=== PATIENT | female | born 1990 | race Caucasian/White ===

== ENCOUNTER 2018-07-29 17:18 | Emergency (ER) | payer MEDICAID ==
--- NOTE | 2018-07-29 17:38 | EDM.PDOC ---
ED HPI GENERAL MEDICAL PROBLEM - General Chief Complaint: Back Pain or Injury Stated Complaint: SHOOTING PAIN DOWN LEG Time Seen by Provider: 07/29/18 17:34 Source of Information: Reports: Patient History Limitations: Reports: No Limitations - History of Present Illness INITIAL COMMENTS - FREE TEXT/NARRATIVE: HISTORY AND PHYSICAL: History of present illness: Patient is a 28-year-old female who presents to the emergency room with complaints of right lumbar back pain with sciatica down the right leg. Discomfort has been ongoing for the past 2-1/2 weeks. She states 2 weeks ago she did receive a lumbar spine x-ray which was normal. She did see the chiropractor earlier this week and also saw her primary care provider yesterday. She states she was given diclofenac and Metaxalone. She has been taking these medications as directed, although has not found any relief. She does have the sensation of numbness and tingling down the right lower extremity. Denies any difficulty ambulating or weakness involving the extremities. She has not had any urinary or fecal incontinence. Denies any injury, trauma or falls associated with the back pain. She states that she has had chronic intermittent back pain for several years, all of which were involving the right. Patient does have an MRI scheduled next week. Review of systems: As per history of present illness and below otherwise all systems reviewed and negative. Past medical history: As per history of present illness and as reviewed below otherwise noncontributory. Surgical history: As per history of present illness and as reviewed below otherwise noncontributory. Social history: See social history for further information Family history: As per history of present illness and as reviewed below otherwise noncontributory. Physical exam: General: Well developed and well nourished 28-year-old female. Alert and oriented. Nontoxic appearing and in no acute distress. HEENT: Atraumatic, normocephalic, pupils equal and reactive bilaterally, negative for conjunctival pallor or scleral icterus, mucous membranes moist, trachea midline. No drooling or trismus noted. No meningeal signs. No hot potato voice noted. Lungs: Clear to auscultation, breath sounds equal bilaterally. Heart: S1S2, regular rate and rhythm without overt murmur Abdomen: Soft, nondistended, nontender. Negative for masses. Negative for costovertebral tenderness. Pelvis: Stable nontender. Genitourinary: Deferred. Rectal: Deferred. Skin: Intact, warm, dry. No lesions or rashes noted. Extremities: Atraumatic, moves all extremities per self without difficulty or deficits, negative for cords or calf pain. Neurovascular unremarkable. C-spine/Back: No pinpoint vertebral tenderness upon palpation. No crepitus, step -offs or obvious deformities. Patient is ambulatory into the emergency room without difficulty or deficits. She is able to lift her great toe up towards her nose, bilaterally, with good equal strength. Any urinary or fecal incontinence. +CMS to bilateral LE bilateral. Paraspinous muscular tenderness to the right low lumbar region going into her right gluteal. Neuro: Awake, alert, oriented. Cranial nerves II through XII unremarkable. Cerebellum unremarkable. Motor and sensory unremarkable throughout. Exam nonfocal. Notes: I did offer to do x-ray imaging with her today, she declines, stating she did have x-rays done 2 weeks ago. She does mention she is disappointed that she will not be receiving an MRI today. She does have an appointment set up for this next week. I encouraged her to keep this appointment. We'll give her Norflex and Solu-Medrol IM while here. Supportive care measures were reviewed and discussed. Voices understanding and is agreeable to plan of care. Denies any further questions or concerns at this time. Diagnostics: Declines Therapeutics: Solu-Medrol, Norflex Prescription: Medrol Dosepak Impression: Lumbar back pain with sciatica Plan: 1. The medication he received as an injection today does cause drowsiness so do not drive for the remaining day 2. When resting please lay on a flat firm surface. Limit your immobility to prevent muscle stiffness, get up to ambulate/move around/gentle stretching multiple times throughout the day. May alternate heat and ice to the painful areas 3. Tylenol as needed for back pain. Take the Climax as directed, this medication may cause drowsiness a do not take it will driving her needing to be functioning outside of the house. Do not take Metaxalone concurrent with Climax - space these medications out from each other. 4. Please follow-up with your primary care provider as we discussed. Return to the ED as needed and as discussed. Definitive disposition and diagnosis as appropriate pending reevaluation and review of above. Right Lower Back Pain Score (Numeric/FACES): 9 - Related Data Allergies Allergy/AdvReac Type Severity Reaction Status Date / Time No Known Allergies Allergy Verified 07/29/18 17:33 Home Meds: Home Meds Diclofenac Sodium [Diclofenac Sodium ER] 50 mg PO TID 07/29/18 [History] Metaxalone 800 mg PO TID 07/29/18 [History] ED ROS GENERAL - Review of Systems Review Of Systems: ROS reveals no pertinent complaints other than HPI. ED EXAM,LOWER BACK PAIN/INJURY - Physical Exam Exam: See Below (See dictation) Course - Vital Signs Last Recorded V/S: Last Vital Signs Temp 98.8 F 07/29/18 17:27 Pulse 92 07/29/18 17:27 Resp 18 07/29/18 17:27 BP 128/79 07/29/18 17:27 Pulse Ox 97 07/29/18 17:27 - Orders/Labs/Meds Orders: Medication Orders Methylprednisolone Sodium Succinate (Solu-Medrol) 125 mg IM ONETIME ONE Stop: 07/29/18 17:41 Orphenadrine Citrate (Norflex) 60 mg IM NOW STA Stop: 07/29/18 17:41 Meds: Medications Generic Name Dose Route Start Last Admin Trade Name Imerq PRN Reason Stop Dose Admin Methylprednisolone Sodium Succinate 125 mg 07/29/18 17:40 Solu-Medrol IM 07/29/18 17:41 ONETIME ONE Orphenadrine Citrate 60 mg 07/29/18 17:40 Norflex IM 07/29/18 17:41 NOW STA Departure - Departure Time of Disposition: 17:53 Disposition: Home, Self-Care 01 Clinical Impression: Back pain of lumbar region with sciatica - Discharge Information Instructions: Sciatica Referrals: PCP,None [Primary Care Provider] - Forms: ED Department Discharge Additional Instructions: The following information is given to patients seen in the emergency department who are being discharged to home. This information is to outline your options for follow-up care. We provide all patients seen in our emergency department with a follow-up referral. The need for follow-up, as well as the timing and circumstances, are variable depending upon the specifics of your emergency department visit. If you don't have a primary care physician on staff, we will provide you with a referral. We always advise you to contact your personal physician following an emergency department visit to inform them of the circumstance of the visit and for follow-up with them and/or the need for any referrals to a consulting specialist. The emergency department will also refer you to a specialist when appropriate. This referral assures that you have the opportunity for follow-up care with a specialist. All of these measure are taken in an effort to provide you with optimal care, which includes your follow-up. Under all circumstances we always encourage you to contact your private physician who remains a resource for coordinating your care. When calling for follow-up care, please make the office aware that this follow-up is from your recent emergency room visit. If for any reason you are refused follow-up, please contact the [facility] Emergency Department at and asked to speak to the emergency department charge nurse. [facility] [address] [place] [id number] [place] [address] 1. The medication he received as an injection today does cause drowsiness so do not drive for the remaining day 2. When resting please lay on a flat firm surface. Limit your immobility to prevent muscle stiffness, get up to ambulate/move around/gentle stretching multiple times throughout the day. May alternate heat and ice to the painful areas 3. Tylenol as needed for back pain. Take the Climax as directed, this medication may cause drowsiness a do not take it will driving her needing to be functioning outside of the house. Do not take Metaxalone concurrent with Climax - space these medications out from each other. 4. Please follow-up with your primary care provider as we discussed. Return to the ED as needed and as discussed.
[2018-07-29] MEDS ORDERED: methylPREDNISolone Sodium Succinate 125 MG/2 ML SDV IM ONE (17:40)
== END 2018-07-29 18:30 | disposition home or self-care (01) ==
LOC: MW.ED 17:18
DX: M54.41 Lumbago with sciatica, right side (principal); Z79.899 Other long term (current) drug therapy
CPT/HCPCS: 96372; 99283; J2360; J2930; 99282

== ENCOUNTER 2023-02-05 06:23 | Inpatient (IN) | payer BC ==
[2023-02-05] MEDS ORDERED: Sodium Chloride 0.9% 10 ML Syringe FLUSH PRN (08:23)
[2023-02-05] MEDS ORDERED: Methylergonovine 0.2 MG/1 ML Amp IM PRN (08:23)
[2023-02-05] MEDS ORDERED: Nalbuphine 10 MG/0.5 ML Syringe IVPUSH PRN (08:23)
[2023-02-05] MEDS ORDERED: Sodium Chloride 0.9% 2.5 ML Syringe FLUSH PRN (08:23)
[2023-02-05] MEDS ORDERED: Tranexamic Acid IN NACL,ISO-OS 1,000 MG in Premix Bag 1 BAG IV PRN ×2 (08:23)
[2023-02-05] MEDS ORDERED: Water For Irrigation,Sterile 1,000 ML Container IRR PRN (08:23)
[2023-02-05] MEDS ORDERED: Misoprostol 25 MCG (1/4 of 100 MCG) Tab VAG PRN (08:23)
[2023-02-05] MEDS ORDERED: Carboprost Tromethamine 250 MCG/1 mL Vial IM PRN (08:23)
[2023-02-05] MEDS ORDERED: Misoprostol 200 MCG Tab PO PRN (08:23)
[2023-02-05] MEDS ORDERED: Terbutaline 1 MG/ML SDV SUBCUT PRN (08:23)
[2023-02-05] MEDS ORDERED: Lidocaine 1% 50 ML MDV INJECT PRN (08:23)
[2023-02-05] MEDS ORDERED: Sodium Chloride 0.9% 20 ML SDV IV PRN (08:23)
[2023-02-05] MEDS ORDERED: Ondansetron 4 MG/2 ML SDV IVPUSH PRN (08:23)
[2023-02-05] MEDS ORDERED: Oxytocin/0.9 % Sodium Chloride 30 UNIT/500 ML BAG IV SCH ×2 (08:30)
[2023-02-05] MEDS ORDERED: Ampicillin 2 GM in Sodium Chloride 0.9% 100 ML IV ONE (08:45)
[2023-02-05] MEDS: Lactated Ringers 1,000 ML IV SCH ×2 (09:00→21:23)
[2023-02-05 09:24] LABS: HEMATOCRIT 34.9 % (37.0-47.0); HEMOGLOBIN 11.9 g/dL (12.0-16.0); MEAN CORPUSCULAR HEMOGLOBIN 28.1 pg (28.0-32.0); MEAN CORPUSCULAR HGB CONC 34.1 g/dL (32.0-36.0); MEAN CORPUSCULAR VOLUME 82.3 fL (83.0-99.0); MEAN PLATELET VOLUME 10.1 fL (9.4-12.3); PLATELET COUNT,PLT 268 K/uL (150-400); RED BLOOD CELL COUNT 4.24 M/uL (4.10-5.30); WHITE BLOOD CELL COUNT,WBC 13.02 K/uL (3.9-11.3)
[2023-02-05] MEDS ORDERED: Phenylephrine HCl 0.5 MG/5 ML AMP IVPUSH PRN (09:47)
[2023-02-05] MEDS ORDERED: ePHEDrine 50 MG/ML SDV IVPUSH PRN ×2 (09:47)
[2023-02-05] MEDS ORDERED: Ropivacaine HCl/PF 400 MG in Premix Bag 1 BAG EPIDUR SCH (10:00)
[2023-02-05] MEDS: Ampicillin 1 GM in Sodium Chloride 0.9% 50 ML IV SCH ×3 (13:05→21:23)
[2023-02-05] MEDS ORDERED: Misoprostol 25 MCG (1/4 of 100 MCG) Tab PO PRN (13:15)
[2023-02-06] MEDS ORDERED: dexmedeTOMIDine HCl 200 MCG/2 ML SDV ONE (00:39)
[2023-02-06] MEDS ORDERED: Bupivacaine 0.25% 10 ML SDV ONE (00:39)
[2023-02-06] MEDS ORDERED: Tranexamic Acid 1,000 MG/10 ML Vial ONE (00:59)
[2023-02-06] MEDS ORDERED: Calcium Chloride 10% 1 GM/10 ML Syringe ONE (00:59)
[2023-02-06] MEDS: Lactated Ringers 1,000 ML IV SCH ×2 (01:16→08:23)
[2023-02-06] MEDS: Ampicillin 1 GM in Sodium Chloride 0.9% 50 ML IV SCH ×4 (01:17→12:58)
[2023-02-06] MEDS ORDERED: ceFAZolin 2 GM in Sodium Chloride 0.9% 50 ML IV ONE (14:06)
[2023-02-06] MEDS ORDERED: Citric Acid/Sodium Citrate Solution 30 ML Cup PO ONE (14:06)
[2023-02-06] MEDS ORDERED: Azithromycin 500 MG in Sodium Chloride 0.9% 250 ML IV ONE (14:06)
[2023-02-06] MEDS ORDERED: Oxytocin/0.9 % Sodium Chloride 30 UNIT/500 ML BAG IV SCH ×2 (14:15→17:00)
[2023-02-06] MEDS ORDERED: Lactated Ringers 1,000 ML IV SCH ×2 (14:15→17:00)
[2023-02-06] MEDS ORDERED: Morphine PF 10 MG/10 ML SDV ONE (14:17)
[2023-02-06] MEDS ORDERED: Bupivacaine 0.5% 10 ML SDV ONE (14:17)
[2023-02-06] MEDS ORDERED: fentaNYL 100 MCG/2 ML SDV ONE (14:17)
[2023-02-06] MEDS ORDERED: Ketorolac 30 MG/ML SDV ONE (14:22)
[2023-02-06] MEDS ORDERED: Ondansetron 4 MG/2 ML SDV ONE (14:22)
[2023-02-06] MEDS ORDERED: Dexamethasone 4 MG/ML 5 ML MDV ONE (14:22)
[2023-02-06] MEDS ORDERED: Oxytocin 10 Units/1 ML SDV ONE ×2 (14:22→14:53)
[2023-02-06] MEDS ORDERED: ceFAZolin 1 GM Vial ONE (14:23)
[2023-02-06] MEDS ORDERED: Azithromycin 500 MG Vial ONE (14:23)
[2023-02-06] MEDS ORDERED: Phenylephrine HCl 0.5 MG/5 ML AMP ONE ×2 (14:44→14:55)
[2023-02-06] MEDS ORDERED: Naloxone 0.4 MG/ML SDV IVPUSH PRN (15:05)
[2023-02-06] MEDS ORDERED: Albuterol 0.083% 2.5 MG/3 ML Neb Soln NEB PRN (15:05)
[2023-02-06] MEDS ORDERED: Morphine 2 MG/ML SYRINGE IVPUSH PRN (15:05)
[2023-02-06] MEDS ORDERED: Acetaminophen/oxyCODONE 325-5 MG Tab PO PRN ×3 (15:05→17:00)
[2023-02-06] MEDS ORDERED: ePHEDrine 50 MG/ML SDV IVPUSH PRN (15:05)
[2023-02-06] MEDS ORDERED: fentaNYL 100 MCG/2 ML SDV IVPUSH PRN (15:05)
[2023-02-06] MEDS ORDERED: droPERidol 5 MG/2 ML SDV IVPUSH PRN (15:05)
[2023-02-06] MEDS ORDERED: Ondansetron 4 MG/2 ML SDV IVPUSH PRN ×3 (15:05→17:00)
[2023-02-06] MEDS ORDERED: fentaNYL 50 MCG/ML SDV IVPUSH PRN (15:05)
[2023-02-06] MEDS ORDERED: Metoclopramide 10 MG/2 ML SDV IVPUSH PRN (15:05)
[2023-02-06] MEDS ORDERED: HYDROmorphone 1 MG/ML Syringe IVPUSH PRN (15:05)
[2023-02-06] MEDS ORDERED: diphenhydrAMINE 50 MG/ML SDV IVPUSH PRN ×2 (15:05→17:00)
[2023-02-06] MEDS ORDERED: Methylergonovine 0.2 MG/1 ML Amp IM PRN (17:00)
[2023-02-06] MEDS ORDERED: Oxytocin 10 Units/1 ML SDV IM PRN (17:00)
[2023-02-06] MEDS ORDERED: Misoprostol 200 MCG Tab RECTAL PRN (17:00)
[2023-02-06] MEDS ORDERED: Bisacodyl 10 MG Supp RECTAL PRN (17:00)
[2023-02-06] MEDS ORDERED: Lanolin 100% Cream 7 GM Tube TOP PRN (17:00)
[2023-02-06] MEDS: Acetaminophen 1,000 MG in Premix Bag 1 BAG IV SCH ×2 (17:43→22:49)
[2023-02-06] MEDS ORDERED: Ketorolac 30 MG/ML SDV IVPUSH SCH (20:30)
[2023-02-06] MEDS: Ketorolac 30 MG/ML SDV IVPUSH SCH (20:30)
[2023-02-06] MEDS ORDERED: Docusate Sodium 100 MG Cap PO SCH (21:00)
[2023-02-07] MEDS: Ketorolac 30 MG/ML SDV IVPUSH SCH (02:32)
[2023-02-07] MEDS: Acetaminophen 1,000 MG in Premix Bag 1 BAG IV SCH ×2 (05:40→11:03)
[2023-02-07 05:47] LABS: HEMATOCRIT 30.7 % (37.0-47.0); HEMOGLOBIN 10.1 g/dL (12.0-16.0); MEAN CORPUSCULAR HEMOGLOBIN 27.7 pg (28.0-32.0); MEAN CORPUSCULAR HGB CONC 32.9 g/dL (32.0-36.0); MEAN CORPUSCULAR VOLUME 84.1 fL (83.0-99.0); PLATELET COUNT,PLT 206 K/uL (150-400); RED BLOOD CELL COUNT 3.65 M/uL (4.10-5.30); WHITE BLOOD CELL COUNT,WBC 22.61 K/uL (3.9-11.3)
[2023-02-07] MEDS ORDERED: oxyCODONE 5 MG Tab PO PRN (15:58)
[2023-02-07] MEDS ORDERED: Ketorolac 30 MG/ML SDV IVPUSH ONE (16:04)
[2023-02-07] MEDS ORDERED: Ibuprofen 800 MG Tab PO PRN (17:00)
[2023-02-07] MEDS: Acetaminophen 500 MG Tab PO SCH ×2 (18:00→22:42)
[2023-02-07] MEDS: Ibuprofen 800 MG Tab PO SCH (22:41)
[2023-02-08] MEDS: Ibuprofen 800 MG Tab PO SCH (07:23)
[2023-02-08] MEDS: Acetaminophen 500 MG Tab PO SCH ×2 (07:24→12:40)
[2023-02-08] MEDS ORDERED: Docusate Sodium 100 MG Cap PO SCH (10:30)
== END 2023-02-08 13:43 | disposition home or self-care (01) | DRG 540 ==
LOC: MW.OBCHECK 06:23 → MW.OB 06:24 → MW.OBCHECK 08:48 → MW.OB 08:49 → OBSVTOIN 08:49 → MW.OB 02-06 20:33
PROVIDERS: ADMIT Obstetrics & Gynecology; ATTEND Obstetrics & Gynecology
PROC: 10D00Z1 Extraction of Products of Conception, Low, Open Approach (ICD-10-PCS; principal; 2023-02-05)
DX: O42.02 Full-term premature rupture of membranes, onset of labor within 24 hours of rupture (principal); D62 Acute posthemorrhagic anemia; O66.40 Failed trial of labor, unspecified; O99.03 Anemia complicating the puerperium; O99.824 Streptococcus B carrier state complicating childbirth; O36.63X0 Maternal care for excessive fetal growth, third trimester, not applicable or unspecified; Z98.890 Other specified postprocedural states; Z88.8 Allergy status to other drugs, medicaments and biological substances; Z79.82 Long term (current) use of aspirin; Z79.899 Other long term (current) drug therapy; Z3A.39 39 weeks gestation of pregnancy; Z37.0 Single live birth
CPT/HCPCS: 01967; 36415; 51702; 59025; 84112; 85027; 86592; 86850; 86900; 86901; A9270-GY; J0131; J0290; J0456; J0665; J0690; J1100; J1885; J2274; J2371; J2405; J2590; J2795; J3010; J3490; J7120

== ENCOUNTER 2024-11-16 07:44 | Inpatient (IN) | payer BC, OTHER ==
[2024-11-16] MEDS ORDERED: Sodium Chloride 0.9% 2.5 ML Syringe FLUSH PRN (07:59)
[2024-11-16] MEDS ORDERED: Sodium Chloride 0.9% 10 ML Syringe FLUSH PRN (07:59)
[2024-11-16] MEDS ORDERED: Citric Acid/Sodium Citrate Solution 30 ML Cup PO ONE (07:59)
[2024-11-16] MEDS ORDERED: Oxytocin/0.9 % Sodium Chloride 30 UNIT/500 ML BAG IV SCH (08:00)
[2024-11-16] MEDS: Lactated Ringers 1,000 ML IV SCH ×2 (08:30→12:00)
[2024-11-16 09:00] LABS: MEAN PLATELET VOLUME 10.0 fL (9.4-12.3); NRBC ABSOLUTE 0.00 K/uL (0.00-0.02); NRBC PERCENT 0.0 /100WBC (0.0-0.2); PLATELET COUNT,PLT 263 K/uL (150-400); RED BLOOD CELL COUNT 4.18 M/uL (4.10-5.30); WHITE BLOOD CELL COUNT,WBC 11.08 K/uL (3.9-11.3)
[2024-11-16] MEDS ORDERED: Ropivacaine 0.5% 5 MG/ML 30 ML SDV ONE (09:35)
[2024-11-16] MEDS ORDERED: Oxytocin 10 Units/1 ML SDV ONE (09:35)
[2024-11-16] MEDS ORDERED: Ketorolac 30 MG/ML SDV ONE (09:35)
[2024-11-16] MEDS ORDERED: fentaNYL 100 MCG/2 ML SDV ONE (09:35)
[2024-11-16] MEDS ORDERED: Morphine PF 10 MG/10 ML SDV ONE (09:35)
[2024-11-16] MEDS ORDERED: Ondansetron 4 MG/2 ML SDV ONE (09:35)
[2024-11-16] MEDS ORDERED: Dexamethasone Sod Phos Preservative Free 10 MG/ML Vial ONE (09:35)
[2024-11-16] MEDS ORDERED: Ondansetron 4 MG/2 ML SDV IVPUSH PRN ×3 (11:01→11:12)
[2024-11-16] MEDS ORDERED: Lanolin 100% Cream 7 GM Tube TOP PRN (11:01)
[2024-11-16] MEDS ORDERED: Oxytocin 10 Units/1 ML SDV IM PRN (11:01)
[2024-11-16] MEDS ORDERED: diphenhydrAMINE 50 MG/ML SDV IVPUSH PRN ×2 (11:01→11:12)
[2024-11-16] MEDS ORDERED: Acetaminophen/oxyCODONE 325-5 MG Tab PO PRN ×3 (11:01→11:12)
[2024-11-16] MEDS ORDERED: Naloxone 0.4 MG/ML SDV IVPUSH PRN ×2 (11:01→11:12)
[2024-11-16 11:08] LABS: PH,UMBILICAL ARTERIAL 7.31 (7.18-7.38); PH,UMBILICAL VENOUS 7.27 (7.25-7.45)
[2024-11-16] MEDS ORDERED: fentaNYL 50 MCG/ML SDV IVPUSH PRN (11:12)
[2024-11-16] MEDS ORDERED: Nalbuphine 10 MG/1 ML Vial IVPUSH PRN (11:12)
[2024-11-16] MEDS ORDERED: Albuterol 0.083% 2.5 MG/3 ML Neb Soln NEB PRN (11:12)
[2024-11-16] MEDS ORDERED: fentaNYL 100 MCG/2 ML SDV IVPUSH PRN (11:12)
[2024-11-16] MEDS ORDERED: Ketorolac 30 MG/ML SDV IVPUSH SCH (11:15)
[2024-11-16] MEDS: Ketorolac 30 MG/ML SDV IVPUSH SCH (16:35)
== END 2024-11-18 10:00 | disposition home or self-care (01) | DRG 540 ==
LOC: MW.OB 07:44
PROVIDERS: ADMIT Obstetrics & Gynecology; ATTEND Obstetrics & Gynecology
PROC: 10D00Z1 Extraction of Products of Conception, Low, Open Approach (ICD-10-PCS; principal; 2024-11-16 10:00)
DX: O34.211 Maternal care for low transverse scar from previous cesarean delivery (principal); O99.824 Streptococcus B carrier state complicating childbirth; B95.1 Streptococcus, group B, as the cause of diseases classified elsewhere; Z37.0 Single live birth; Z88.8 Allergy status to other drugs, medicaments and biological substances; Z3A.39 39 weeks gestation of pregnancy
CPT/HCPCS: 01961; 36415; 64488; 82803; 85014; 85018; 85027; 86592; 86850; 86900; 86901; A9270-GY; J0166; J0665; J0690; J1100; J1885; J2003; J2274; J2371; J2405; J2590; J2795; J3010; J7120